=== PATIENT | male | born 1955 | race Caucasian/White ===

== ENCOUNTER 2019-09-01 11:43 | Emergency (ER) | payer MEDICARE, BC ==
[2019-09-01 12:45] LABS: Hematocrit 45 % (42-52); Hemoglobin 15.9 g/dL (14.0-18.0); Mean Corpuscular HGB Conc 36 g/dL (31-36); Mean Corpuscular Hemoglobin 31 pg (27-31); Mean Corpuscular Volume 88 fL (80-94); Mean Platelet Volume 8.6 fL (7.4-10.4); Platelet Count 256 10^3/uL (150-450); Red Blood Count 5.06 10^6 /uL (4.18-5.48); Red Cell Distribution Width 14 % (10-15); White Blood Count 9.2 10^3/uL (3.5-10.8)
[2019-09-01 12:46] LABS: ABS Basophils 0.1 10^3/ul (0-0.2); ABS Eosinophils 0.5 10^3/ul (0-0.6); ABS Lymphocytes 1.9 10^3/ul (1.0-4.8); ABS Monocytes 0.8 10^3/ul (0-0.8); ABS Neutrophils 5.9 10^3/ul (1.5-7.7); Eosinophil % 5.2 %; Lymphocyte % 21.1 %
[2019-09-01 12:59] LABS: ALT 33 U/L (7-52); AST 23 U/L (13-39); Albumin 4.3 g/dL (3.2-5.2); Albumin/Globulin Ratio 1.4 (1-3); Alkaline Phosphatase 76 U/L (34-104); Anion Gap 6 mmol/L (2-11); Blood Urea Nitrogen 22 mg/dL (6-24); C Reactive Protein 1.35 mg/L (<8.01); CO2 Carbon Dioxide 28 mmol/L (22-32); Calcium 11.4 mg/dL (8.6-10.3); Chloride 106 mmol/L (101-111); Creatine Kinase 84 U/L (10-223); EGFR African American 90.7 (>60); Glucose 100 mg/dL (70-100); Magnesium 1.8 mg/dL (1.9-2.7); Potassium 3.7 mmol/L (3.5-5.0); Sodium 140 mmol/L (135-145); Total Protein 7.3 g/dL (6.4-8.9)
[2019-09-01 13:30] LABS: Alcohol < 10 mg/dL (<10)
[2019-09-01 13:45] LABS: TSH (Thyroid Stimulating Horm) 1.26 mcIU/mL (0.34-5.60)
[2019-09-01 16:32] LABS: Urine Appearance Clear; Urine Bilirubin Negative (Negative); Urine Blood Negative (Negative); Urine Color Yellow; Urine Glucose Negative (Negative); Urine Ketones Negative (Negative); Urine Nitrite Negative (Negative); Urine Protein Negative (Negative); Urine Urobilinogen Positive (Negative)
--- NOTE | 2019-09-01 17:11 | ED ---
Lower Extremity - HPI Summary HPI Summary: This patient is a 64yo M presenting to the ED with pain to the R hip and R upper and lower leg with ambulation. States approximately 10 days ago, he fell outside. Fell forward and landed on his bilateral knees. He was able to stand up, did not have any leg, hip or back pain at the time. He states he may have developed some discomfort a few days later, but continued to be ambulating well. Sxs are worse at night and more located to the R calf. Upon ambulation over the past 2 days he states he is unbalanced and feels he cannot walk anymore. He states this is due to his pain. Continues to deny any weakness. Pain upon walking is located to the lateral side of this R upper leg. Denies neuro symptoms including confusion, memory loss, headache, visual changes or disturbances, numbness or tingling throughout, facial droop, drooling, weakness in the upper or lower extremities. Denies any back pain. Denies any unilateral weakness. Denies any bladder or bowel dysfunction. Patient states he continues to eat and drink okay, denies any recent illness, fevers, insect bites or infections. 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 Mechanism Of Injury: Other - fall 10 days ago Onset of Pain: Post Accident Onset/Duration: Days Severity Initially: Moderate Severity Currently: Moderate Pain Intensity: 0 Pain Scale Used: 0-10 Numeric Timing: Constant Associated Signs And Symptoms: Negative: Swelling, Redness, Bruising, Fever, Weakness, Dizziness, Abdominal Pain, Knee Pain Aggravating Factor(s): Standing, Ambulation Alleviating Factor(s): Rest Able to Bear Weight: Yes - Allergies/Home Medications Allergies/Adverse Reactions: Allergies Allergy/AdvReac Type Severity Reaction Status Date / Time No Known Allergies Allergy Verified 09/01/19 11:59 Home Medications: Home Medications Aspirin EC TAB* [Ecotrin EC Low Dose 81 MG*] 81 mg PO DAILY #0 tab.ec 08/02/15 [ Rx Confirmed 03/26/18] Chlorthalidone TAB* [Hygroton TAB*] 25 mg PO DAILY #30 tab 08/02/15 [Rx Confirmed 03/26/18] Potassium Chlor TAB* [Klor Con ER TAB 10 MEQ*] 10 meq PO DAILY #30 tab.er [Rx Confirmed 03/26/18] Atorvastatin* [Lipitor 20 MG*] 20 mg PO BEDTIME 03/23/18 [History Confirmed ] Cetirizine* [ZyrTEC 10 MG TAB*] 10 mg PO DAILY 03/23/18 [History Confirmed 03/23] Cholecalciferol TAB* [Vitamin D TAB*] 1,000 unit PO DAILY 03/23/18 [History Confirmed 03/23/18] Metoprolol Succinate XL TAB* [Toprol XL TAB*] 50 mg PO DAILY 03/23/18 [History Confirmed 03/26/18] lisinopriL [Lisinopril 30 MG-] 30 mg PO DAILY 03/23/18 [History Confirmed ] PMH/Surg Hx/FS Hx/Imm Hx Previously Healthy: Yes Cardiovascular History: Reports: Hx Hypercholesterolemia, Hx Hypertension Denies: Hx Angina, Hx Coronary Artery Disease, Hx Myocardial Infarction, Hx Valvular Heart Disease Respiratory History: Denies: Hx Chronic Obstructive Pulmonary Disease (COPD), Other Respiratory Problems/Disorders Sensory History: Reports: Hx Contacts or Glasses, Hx Hearing Problem Opthamlomology History: Reports: Hx Contacts or Glasses Neurological History: Reports: Other Neuro Impairments/Disorders - new onset syncope - Immunization History Hx Pertussis Vaccination: No Immunizations Up to Date: Yes Infectious Disease History: No Infectious Disease History: Denies: Traveled Outside the [place] in Last 30 Days - Social History Occupation: Employed Part-time Lives: With Family Alcohol Use: None Hx Substance Use: No Substance Use Type: Reports: None Hx Tobacco Use: No Smoking Status (MU): Never Smoked Tobacco Review of Systems Negative: Fever, Chills, Fatigue, Skin Diaphoresis Negative: Blurred Vision, Diplopia, Drainage, Erythema Negative: Epistaxis, Dental Pain Negative: Palpitations, Chest Pain Negative: Shortness Of Breath, Cough Negative: Abdominal Pain, Vomiting, Diarrhea, Nausea Positive: see HPI. Negative: burning, dysuria, flank pain, hematuria, incontinence, pain Positive: Arthralgia - right upper and lower leg. Negative: Decreased ROM, Edema Negative: Rash, Bruising Negative: Headache, Weakness, Paresthesia, Numbness, Syncope, Slurred Speech Psychological: Normal All Other Systems Reviewed And Are Negative: Yes Physical Exam Triage Information Reviewed: Yes Vital Signs On Initial Exam: Initial Vitals Temp Pulse Resp BP Pulse Ox 97.5 F 63 18 173/92 93 09/01/19 11:54 09/01/19 11:54 09/01/19 11:54 09/01/19 11:54 09/01/19 11:54 Vital Signs Reviewed: Yes Appearance: Positive: Well-Appearing, Well-Nourished Skin: Positive: Warm, Skin Color Reflects Adequate Perfusion Head/Face: Positive: Normal Head/Face Inspection Eyes: Positive: EOMI, INDY, Conjunctiva Clear Neck: Positive: Supple, Nontender, No Lymphadenopathy Respiratory/Lung Sounds: Positive: Clear to Auscultation, Breath Sounds Present Cardiovascular: Positive: RRR, Pulses are Symmetrical in both Upper and Lower Extremities Bowel Sounds: Positive: Present Musculoskeletal: Positive: Pain @ - right lateral upper leg, right. Negative: Walter Sign Left, Walter Sign Right Neurological: Positive: Sensory/Motor Intact, Alert, Oriented to Person Place, Time, CN Intact II-III, Facial Symmetry, Speech Normal. Negative: Cerebellar Dysfunction, Disoriented, Facial Droop, Finger to Nose Psychiatric: Positive: Normal, Affect/Mood Appropriate AVPU Assessment: Alert Procedures - Sedation Patient Received Moderate/Deep Sedation with Procedure: No Diagnostics - Vital Signs Vital Signs Temp Pulse Resp BP Pulse Ox 09/01/19 11:54 97.5 F 63 18 173/92 93 - Laboratory Lab Results: Lab Results 09/01/19 09/01/19 09/01/19 Range/Units 12:33 12:33 12:33 WBC 9.2 (3.5-10.8) 10^3/uL RBC 5.06 (4.18-5.48) 10^6 /uL Hgb 15.9 (14.0-18.0) g/dL Hct 45 (42-52) % MCV 88 (80-94) fL MCH 31 (27-31) pg MCHC 36 (31-36) g/dL RDW 14 (10-15) % Plt Count 256 (150-450) 10^3/uL MPV 8.6 (7.4-10.4) fL Neut % (Auto) 64.2 % Lymph % (Auto) 21.1 % [place] % (Auto) 8.4 % Eos % (Auto) 5.2 % Baso % (Auto) 1.1 % Absolute Neuts (auto) 5.9 (1.5-7.7) 10^3/ul Absolute Lymphs (auto) 1.9 (1.0-4.8) 10^3/ul Absolute Monos (auto) 0.8 (0-0.8) 10^3/ul Absolute Eos (auto) 0.5 (0-0.6) 10^3/ul Absolute Basos (auto) 0.1 (0-0.2) 10^3/ul Absolute Nucleated RBC 0.0 10^3/ul Neutrophils % 67.0 % Lymphocytes % 21.0 % Reactive Lymphs % 3.0 (0-6) % Monocytes % 4.0 % Eosinophils % 5.0 % Nucleated RBC % 0.0 Normal RBC Morphology Normal (Normal) Hem Pathologist Commnt Pending Sodium 140 (135-145) mmol/L Potassium 3.7 (3.5-5.0) mmol/L Chloride 106 (101-111) mmol/L Carbon Dioxide 28 (22-32) mmol/L Anion Gap 6 (2-11) mmol/L BUN 22 (6-24) mg/dL Creatinine 1.00 (0.67-1.17) mg/dL Est GFR ( Amer) 90.7 (>60) Est GFR (Non-Af Amer) 75.0 (>60) BUN/Creatinine Ratio 22.0 H (8-20) Glucose 100 (70-100) mg/dL Lactic Acid 1.1 (0.5-2.0) mmol/L Calcium 11.4 H (8.6-10.3) mg/dL Magnesium 1.8 L (1.9-2.7) mg/dL Total Bilirubin 0.50 (0.2-1.0) mg/dL AST 23 (13-39) U/L ALT 33 (7-52) U/L Alkaline Phosphatase 76 (34-104) U/L Total Creatine Kinase 84 (10-223) U/L C-Reactive Protein 1.35 (<8.01) mg/L Total Protein 7.3 (6.4-8.9) g/dL Albumin 4.3 (3.2-5.2) g/dL Globulin 3.0 (2-4) g/dL Albumin/Globulin Ratio 1.4 (1-3) TSH 1.26 (0.34-5.60) mcIU/mL Urine Color Urine Appearance Urine pH (5-9) Ur Specific [place] (1.010-1.030) Urine Protein (Negative) Urine Ketones (Negative) Urine Blood (Negative) Urine Nitrate (Negative) Urine Bilirubin (Negative) Urine Urobilinogen (Negative) Ur Leukocyte Esterase (Negative) Urine Glucose (Negative) Serum Alcohol < 10 (<10) mg/dL 09/01/19 Range/Units 16:12 WBC (3.5-10.8) 10^3/uL RBC (4.18-5.48) 10^6 /uL Hgb (14.0-18.0) g/dL Hct (42-52) % MCV (80-94) fL MCH (27-31) pg MCHC (31-36) g/dL RDW (10-15) % Plt Count (150-450) 10^3/uL MPV (7.4-10.4) fL Neut % (Auto) % Lymph % (Auto) % [place] % (Auto) % Eos % (Auto) % Baso % (Auto) % Absolute Neuts (auto) (1.5-7.7) 10^3/ul Absolute Lymphs (auto) (1.0-4.8) 10^3/ul Absolute Monos (auto) (0-0.8) 10^3/ul Absolute Eos (auto) (0-0.6) 10^3/ul Absolute Basos (auto) (0-0.2) 10^3/ul Absolute Nucleated RBC 10^3/ul Neutrophils % % Lymphocytes % % Reactive Lymphs % (0-6) % Monocytes % % Eosinophils % % Nucleated RBC % Normal RBC Morphology (Normal) Hem Pathologist Commnt Sodium (135-145) mmol/L Potassium (3.5-5.0) mmol/L Chloride (101-111) mmol/L Carbon Dioxide (22-32) mmol/L Anion Gap (2-11) mmol/L BUN (6-24) mg/dL Creatinine (0.67-1.17) mg/dL Est GFR ( Amer) (>60) Est GFR (Non-Af Amer) (>60) BUN/Creatinine Ratio (8-20) Glucose (70-100) mg/dL Lactic Acid (0.5-2.0) mmol/L Calcium (8.6-10.3) mg/dL Magnesium (1.9-2.7) mg/dL Total Bilirubin (0.2-1.0) mg/dL AST (13-39) U/L ALT (7-52) U/L Alkaline Phosphatase (34-104) U/L Total Creatine Kinase (10-223) U/L C-Reactive Protein (<8.01) mg/L Total Protein (6.4-8.9) g/dL Albumin (3.2-5.2) g/dL Globulin (2-4) g/dL Albumin/Globulin Ratio (1-3) TSH (0.34-5.60) mcIU/mL Urine Color Yellow Urine Appearance Clear Urine pH 6.0 (5-9) Ur Specific [place] 1.020 (1.010-1.030) Urine Protein Negative (Negative) Urine Ketones Negative (Negative) Urine Blood Negative (Negative) Urine Nitrate Negative (Negative) Urine Bilirubin Negative (Negative) Urine Urobilinogen Positive A (Negative) Ur Leukocyte Esterase Negative (Negative) Urine Glucose Negative (Negative) Serum Alcohol (<10) mg/dL Result Diagrams: 09/01/19 12:33 09/01/19 12:33 Lab Statement: Any lab studies that have been ordered have been reviewed, and results considered in the medical decision making process. Lower Extremity Course/Dx - Course Course Of Treatment: On physical examination, patient appears well lying in bed. Lungs CTA, RRR. Patient is alert and oriented and does not appear to be confused. Per , patient has not been confused, has had no memory loss or any neuro deficits. No cervical, thoracic or lumbar spine tenderness on exam. Full range of motion to the neck, flexion and extension as well as rotation. No weakness noted throughout the bilateral upper and lower extremities. On lying in the bed, patient is able to lift the bilateral legs, upon resistance. Patient states after doing so, he does have pain to the right lateral upper leg. He does have pain on palpation to the right upper leg, right calf and left upper leg. No pain to the hips, however states is having intermittent pain to the groin bilaterally. No abd tenderness throughout. No neuro symptoms. Ambulated patient and he has a shuffling gait stating he has pain to the R lateral upper leg when ambulating. Denies pain to the hip or the calf at this time. Full neuro exam normal. Xrays obtained of the bilateral femurs and hips/pelvis. No acute findings. CT pelvis and CT lumbar spine obtained as there was consideration this could be referred pain from a back injury. No numbness or tingling bilaterally to the upper or lower extremities. This shows degenerative disc disease most severely affecting L3 and L4 and L4 and L5 causing central canal and neural foraminal stenosis. CT Pelvis: pending. Discussed with Dr. Baron who was also able to see patient. Recommended brain CT. This ordered and is pending. Signed out to MERVIN Chavez pending Brain CT. - Diagnoses Provider Diagnoses: Leg pain, Shuffling gait - Physician Notifications Discussed Care Of Patient With: Shreyas Baron Instructed by Provider To: MD Will See In ED Discharge ED - Sign-Out/Discharge Documenting (check all that apply): Sign-Out Patient Signing out patient TO: Erum Oglesby - Discharge Plan Condition: Good Referrals: Vishnu Yates MD [Primary Care Provider] - - Billing Disposition and Condition Condition: GOOD - Attestation Statements Provider Attestation: See separate note
--- NOTE | 2019-09-01 17:21 | ED ---
Progress - Progress Note Progress Note: Dr. Baron was updated on history of current complaint. Pt states he fell on ice 1 week ago and did not feel pain, but 2 days ago became unable to put weight on his right leg due to pain. Pt denies fever, chills, N/V/D, constipation, hematuria, numbness, tingling, GARDINER, or change in vision. Pt noted hx of HTN and a CVA 3 years ago. Physical exam found the following: Constitutional: Well-developed, Well-nourished, Alert. (-) Distressed Skin: Warm, Dry HENT: Normocephalic; Atraumatic Eyes: Conjunctiva normal Neck: Musculoskeletal ROM normal neck. (-) JVD, (-) Stridor, (-) Tracheal deviation Cardio: Rhythm regular, rate normal, Heart sounds normal; Intact distal pulses; Radial pulses are 2+ and symmetric. (-) Murmur. DP/PT pulse 2+ bilat sensation intact in the legs Pulmonary/Chest wall: Effort normal. (-) Respiratory distress, (-) Wheezes, (-) Rales Abd: Soft, (-) tenderness, (-) Distension, (-) Guarding, (-) Rebound Musculoskeletal: (-) Edema, Good pulses bilaterally in radius, No calf tenderness, No venous cords, No pain with dorsiflexion of foot. No bony tenderness in RLE. No back tenderness. Able to ambulate but walks with abnormal gait secondary to pain Lymph: (-) Cervical adenopathy Neuro: Alert, Oriented x3 Psych: Mood and affect Normal Course/Dx - Course Course Of Treatment: Patient was seen by Samira JEFFRIES and presented to me. I personally saw and examined the patient. Per my history, patient had a fall 1.5 weeks ago he slipped on isolated on his knees. Patient had no injury during that event. On Monday night, patient sitting in his chair when he developed pain in his right thigh. Patient had difficulty getting out of his chair at that time. Patient's had difficulty walking since this event. Patient has no back pain, abdominal pain, numbness, tingling, weakness, swelling to his leg. Patient has no change in vision, headache. Patient has a history of TIA in the past. Patient has a normal exam outside of pain with ambulating in his right leg. Patient had x-rays performed which were negative. Patient's symptoms with CT scan to check for occult fracture which was negative. Patient had a CT scan of his brain showed no evidence of any acute changes. Patient's blood work was grossly unremarkable including a normal CRP. Patient was found to have an incidental abdominal aortic aneurysm but this is causing patient's symptoms. Patient will follow up with his primary care doctor this week for referral for his AAA and to make sure symptoms are getting better. Patient was given very strict return precautions and family was comfortable with discharge - Diagnoses Provider Diagnoses: Leg pain, Shuffling gait Discharge ED - Sign-Out/Discharge Documenting (check all that apply): Patient Departure - Discharge Plan Condition: Good Disposition: HOME Patient Education Materials: Leg Pain (ED) Referrals: Vishnu Yates MD [Primary Care Provider] - Additional Instructions: Call your primary care doctor tomorrow morning to get an appointment early this week Please return if you have any new symptoms or worsening pain in your leg You were found to have an abdominal aortic aneurysm and you need to have this followed up with. - Billing Disposition and Condition Condition: GOOD Disposition: Home - Attestation Statements Document Initiated by Calvin: Yes Documenting Scribe: Orlando Davila Provider For Whom Calvin is Documenting (Include Credential): Shreyas Baron MD Scribe Attestation: Orlando Galeano, fernandezed for Shreyas Baron MD on 09/01/19 at 1856. Scribe Documentation Reviewed: Yes Provider Attestation: The documentation as recorded by the Orlando lechuga accurately reflects the service I personally performed and the decisions made by Shreyas ray MD Status of Scribe Document: Viewed
--- NOTE | 2019-09-01 18:33 | ED ---
Progress - Progress Note Progress Note: Dr. Baron was updated on history of current complaint. Pt states he fell on ice 1 week ago and did not feel pain, but 2 days ago became unable to put weight on his right leg due to pain. Pt denies fever, chills, N/V/D, constipation, hematuria, numbness, tingling, GARDINER, or change in vision. Pt noted hx of HTN and a CVA 3 years ago. Course/Dx - Course Course Of Treatment: On physical examination, patient appears well lying in bed. Lungs CTA, RRR. Patient is alert and oriented and does not appear to be confused. Per , patient has not been confused, has had no memory loss or any neuro deficits. No cervical, thoracic or lumbar spine tenderness on exam. Full range of motion to the neck, flexion and extension as well as rotation. No weakness noted throughout the bilateral upper and lower extremities. On lying in the bed, patient is able to lift the bilateral legs, upon resistance. Patient states after doing so, he does have pain to the right lateral upper leg. He does have pain on palpation to the right upper leg, right calf and left upper leg. No pain to the hips, however states is having intermittent pain to the groin bilaterally. No abd tenderness throughout. No neuro symptoms. Ambulated patient and he has a shuffling gait stating he has pain to the R lateral upper leg when ambulating. Denies pain to the hip or the calf at this time. Full neuro exam normal. Xrays obtained of the bilateral femurs and hips/pelvis. No acute findings. CT pelvis and CT lumbar spine obtained as there was consideration this could be referred pain from a back injury. No numbness or tingling bilaterally to the upper or lower extremities. This shows degenerative disc disease most severely affecting L3 and L4 and L4 and L5 causing central canal and neural foraminal stenosis. CT Pelvis: pending. Discussed with Dr. Baron who was also able to see patient. Recommended brain CT. This ordered and is pending. Signed out to MERVIN Chavez pending Brain CT. - Diagnoses Provider Diagnoses: Leg pain, Shuffling gait - Provider Notifications Instructed by Provider To: Will See In ED Discharge ED - Discharge Plan Condition: Good Referrals: Vishnu Yates MD [Primary Care Provider] - Additional Instructions: follow up with primary within 5 days Return to ED if develop any new or worsening symptoms - Billing Disposition and Condition Condition: GOOD
[2019-09-01 19:25] VITALS: BP 160/110
== END 2019-09-01 19:25 | disposition home or self-care (01) ==
LOC: ED 11:43
DX: M79.652 Pain in left thigh (principal); M79.651 Pain in right thigh; M25.552 Pain in left hip; M25.551 Pain in right hip; R26.89 Other abnormalities of gait and mobility; W00.0XXA Fall on same level due to ice and snow, initial encounter; Y92.9 Unspecified place or not applicable; I71.4 Abdominal aortic aneurysm, without rupture; M51.36 Other intervertebral disc degeneration, lumbar region; E78.00 Pure hypercholesterolemia, unspecified; I10 Essential (primary) hypertension; Z79.82 Long term (current) use of aspirin; Z79.899 Other long term (current) drug therapy
CPT/HCPCS: 36415; 70450; 72131; 72192; 80053; 80320; 81003; 82550; 83605; 83735; 84443; 85025; 85060; 86140; 99284; G0480